=== PATIENT | male | born 1990 | race Caucasian/White ===

== ENCOUNTER 2017-01-13 11:50 | Emergency (ER) | payer OTHER | END 2017-01-13 14:17 | disposition home or self-care (01) | LOC: FER 11:50 | DX: M54.32 Sciatica, left side (principal); G89.29 Other chronic pain; F41.9 Anxiety disorder, unspecified; F31.30 Bipolar disorder, current episode depressed, mild or moderate severity, unspecified; F17.210 Nicotine dependence, cigarettes, uncomplicated; Z79.899 Other long term (current) drug therapy; Z98.890 Other specified postprocedural states | CPT/HCPCS: 73502; J2930 ==

== ENCOUNTER 2017-02-11 21:08 | Emergency (ER) | payer OTHER | END 2017-02-11 23:53 | disposition home or self-care (01) | LOC: FER 21:08 | DX: J02.9 Acute pharyngitis, unspecified (principal); R19.7 Diarrhea, unspecified; F17.210 Nicotine dependence, cigarettes, uncomplicated | CPT/HCPCS: 87450; 87804; 87899; 99284 ==

== ENCOUNTER 2017-07-24 12:58 | Emergency (ER) | payer OTHER | END 2017-07-24 14:23 | disposition home or self-care (01) | LOC: FER 12:58 | DX: L60.0 Ingrowing nail (principal) | CPT/HCPCS: 99283 ==

== ENCOUNTER 2017-07-28 15:52 | Emergency (ER) | payer OTHER | END 2017-07-28 18:05 | disposition home or self-care (01) | LOC: FER 15:52 | DX: L03.012 Cellulitis of left finger (principal); F31.9 Bipolar disorder, unspecified; F17.210 Nicotine dependence, cigarettes, uncomplicated; Z79.899 Other long term (current) drug therapy | CPT/HCPCS: 99283 ==

== ENCOUNTER 2021-07-15 01:56 | Emergency (ER) | payer OTHER ==
[~2021-07-15 01:56] MED LIST: BACTRIM DS TAB1 EACH PO; BACTROBAN NASAL1 GM; DEPAKOTE250 MG PO; FLEXERIL10 MG PO; IBUPROFEN800 MG PO; KEFLEX250 MG PO; KEFLEX500 MG PO; MOBIC7.5 MG PO; NEURONTIN400 MG PO; NORCO 5-325 TA1 EACH PO; NORCO 7.5-3251 EACH PO; PERCOCET 5-3251 EACH PO; PREDNISONE 20MG20 MG PO; SEROQUEL 100MG100 MG PO; TESSALON PERLE100 MG PO
[2021-07-15] MEDS ORDERED: ETODOLAC300 MG PO (02:30)
[2021-07-15] MEDS ORDERED: CYCLOBENZAPRINE10 MG PO (02:30)
[2021-07-15] MEDS ORDERED: PERCOCET 5-3251 EACH PO (02:30)
== END 2021-07-15 02:55 | disposition home or self-care (01) ==
LOC: FER 01:56
DX: S39.012A Strain of muscle, fascia and tendon of lower back, initial encounter (principal); E11.9 Type 2 diabetes mellitus without complications; Z79.84 Long term (current) use of oral hypoglycemic drugs; F17.210 Nicotine dependence, cigarettes, uncomplicated; W19.XXXA Unspecified fall, initial encounter; X50.9XXA Other and unspecified overexertion or strenuous movements or postures, initial encounter; Y92.89 Other specified places as the place of occurrence of the external cause; Y99.0 Civilian activity done for income or pay
CPT/HCPCS: 72100; 72170